=== PATIENT | male | born 1945 | race Caucasian/White ===

== ENCOUNTER 2021-04-22 08:30 | Outpatient (CLI) | payer MEDICARE, OTHER ==
[2021-04-22] MEDS ORDERED: AMIT100T61 PO (10:16)
[2021-04-22 11:12] LABS: ALBUMIN 3.8 G/DL (3.4-5.0); ALBUMIN/GLOBULIN RATIO 1.3 (1.1-1.5); ALKALINE PHOSPHATASE 123 IU/L (46-116); BLOOD UREA NITROGEN 21 MG/DL (7-18); CALCIUM 8.4 MG/DL (8.5-10.1); CHLORIDE 106 MMOL/L (99-107); CREATININE 1.05 MG/DL (0.60-1.10); PRE OP ALT 19 U/L (30-65); PRE OP ANION GAP 7 (8-16); PRE OP AST 14 U/L (10-37); PRE OP BILIRUB, TOTAL 0.3 MG/DL (0.0-1.0); PRE OP GLUCOSE 85 MG/DL (70-104); PRE OP POTASSIUM 4.2 MMOL/L (3.4-5.1); PRE OP SODIUM 145 MMOL/L (135-145); TOTAL CARBON DIOXIDE 31.8 MMOL/L (24-32); TOTAL PROTEIN 6.8 G/DL (6.4-8.2); eGFR 69 ML/MIN
[2021-04-22 11:17] LABS: BASOPHILS % (AUTO) 0.6 % (0-1); EOSINOPHILS # (AUTO) 0.2 X10'3 (0-0.9); EOSINOPHILS % (AUTO) 4.2 % (0-6); LYMPHOCYTES # (AUTO) 1.6 X10'3 (1.1-4.8); LYMPHOCYTES % (AUTO) 28.2 % (21-51); MEAN CORPUSCULAR HEMOGLOBIN 32.2 PG (27.0-31.0); MEAN CORPUSCULAR HGB CONC 33.3 g/dL (33.0-36.5); MEAN CORPUSCULAR VOLUME 96.8 FL (78-98); MONOCYTES # (AUTO) 0.7 X10'3 (0-0.9); MONOCYTES % (AUTO) 12.7 % (2-12); NEUTROPHILS # (AUTO) 3.1 X10'3 (1.8-7.7); NEUTROPHILS % (AUTO) 54.3 % (42-75); PRE OP HEMATOCRIT 40.8 % (42.0-52.0); PRE OP HEMOGLOBIN 13.6 g/dL (14.0-17.9); PRE OP PLATELET COUNT 184 X10'3 (140-440); RED BLOOD COUNT 4.22 X10'6 (4.70-6.10); RED CELL DISTRIBUTION WIDTH 15.8 % (11.5-14.5)
== END 2021-04-22 23:59 | disposition home or self-care (01) ==
LOC: PRE-OP 08:30 → EDSTATUS 05-23 14:30
PROVIDERS: ATTEND Orthopaedic Surgery
DX: Z01.812 Encounter for preprocedural laboratory examination (principal); Z20.822 Contact with and (suspected) exposure to COVID-19
CPT/HCPCS: 36415; 80053; 85025; 87081; U0003; U0005

== ENCOUNTER 2021-05-23 08:59 | Inpatient (IN) | payer MEDICARE, OTHER ==
[2021-05-16 10:24] LABS: BASOPHILS # (AUTO) 0.1 X10'3 (0-0.2); BASOPHILS % (AUTO) 0.7 % (0-1); EOSINOPHILS # (AUTO) 0.2 X10'3 (0-0.9); EOSINOPHILS % (AUTO) 3.3 % (0-6); LYMPHOCYTES # (AUTO) 1.5 X10'3 (1.1-4.8); LYMPHOCYTES % (AUTO) 19.3 % (21-51); MEAN CORPUSCULAR HGB CONC 33.1 g/dL (33.0-36.5); MEAN CORPUSCULAR VOLUME 96.7 FL (78-98); MEAN PLATELET VOLUME 7.9 FL (7.4-10.4); MONOCYTES # (AUTO) 0.7 X10'3 (0-0.9); NEUTROPHILS # (AUTO) 5.2 X10'3 (1.8-7.7); NEUTROPHILS % (AUTO) 67.7 % (42-75); PRE OP HEMOGLOBIN 14.9 g/dL (14.0-17.9); PRE OP PLATELET COUNT 156 X10'3 (140-440); RED BLOOD COUNT 4.65 X10'6 (4.70-6.10); RED CELL DISTRIBUTION WIDTH 15.3 % (11.5-14.5)
[2021-05-16 10:35] LABS: ALBUMIN 4.3 G/DL (3.4-5.0); ALBUMIN/GLOBULIN RATIO 1.3 (1.1-1.5); ALKALINE PHOSPHATASE 120 IU/L (46-116); CALCIUM 8.8 MG/DL (8.5-10.1); CHLORIDE 107 MMOL/L (99-107); CREATININE 1.01 MG/DL (0.60-1.10); PRE OP ALT 25 U/L (30-65); PRE OP ANION GAP 11 (8-16); PRE OP AST 16 U/L (10-37); PRE OP BILIRUB, TOTAL 0.3 MG/DL (0.0-1.0); PRE OP GLUCOSE 99 MG/DL (70-104); PRE OP POTASSIUM 3.8 MMOL/L (3.4-5.1); PRE OP SODIUM 146 MMOL/L (135-145); TOTAL CARBON DIOXIDE 28.5 MMOL/L (24-32); TOTAL PROTEIN 7.5 G/DL (6.4-8.2); eGFR 72 ML/MIN
[2021-05-16 10:56] LABS: BLOOD UREA NITROGEN 13 MG/DL (7-18); BUN/CREATININE RATIO 12.9 (5.4-32.0)
[~2021-05-23] VITALS: Ht 180.3 cm; Wt 76.8 kg
[2021-05-23] VITALS (20 sets, daily range): BP systolic 112–147; BP diastolic 52–80
[~2021-05-23 08:59] MED LIST: NO HOME MEDS; cefazolin/dext.iso 2gm/100ml IV ONE; cefazolin/dext.iso 2gm/50ml 50 ML IV ONE; famotidine 20mg tablet PO ONE; ringers solution, lacted 1,000 ML IV SCH; tranexamic acid 650mg tablet PO ONE; vancomycin 1,500 MG in NS 300ml IV soln IV ONE
[2021-05-23] MEDS ORDERED: tranexamic acid inj. 770 MG in normal saline 100ml IV soln 100 ML IV ONE ×2 (10:35→11:30)
--- NOTE | 2021-05-23 10:50 | NUR ---
PT AWAKE VSS ATTEMPTED TO SWALLOW PILLS, DIFF SWALLOWING, DR RODGERS NOTIFIED ALL MEDS TO BE GIVEN IV. INSTR PT TO FOLLOW UP WITH PCP REGARDING SWALLOWING ISSUES, PT VERBAL UNDERSTANDING. Addendum: 05/23/21 at 1118 by Charissa Hogan RN Amended: Links added.
[2021-05-23] MEDS ORDERED: ketorolac trometh. 30mg/ml inj. ONE (14:17)
[2021-05-23] MEDS ORDERED: ROPIVAcaine 0.5% (5mg/ml) 30ml vial ONE ×3 (14:17→14:44)
[2021-05-23] MEDS ORDERED: sevoflurane 250ml liquid IH ONE (14:22)
[2021-05-23] MEDS ORDERED: fentaNYL/PF 50MCG/1 ML 2ML syringe ONE ×2 (14:24→15:52)
[2021-05-23] MEDS ORDERED: midazolam 1 mg/ML 2ml injection ONE (14:25)
[2021-05-23] MEDS ORDERED: ondansetron/PF 4mg/2ml inj ONE (14:43)
[2021-05-23] MEDS ORDERED: propofol inj 20 ML IV ONE (14:44)
[2021-05-23] MEDS ORDERED: dexamethasone sod phosphate 4mg/ml inj. ONE (14:44)
[2021-05-23] MEDS ORDERED: mineral oil 10ml sterile, topical TP ONE (15:08)
[2021-05-23] MEDS ORDERED: ondansetron/PF 4mg/2ml inj IV PRN ×2 (15:25→16:40)
[2021-05-23] MEDS ORDERED: morphine 2 MG/ML inj. syringe IV PRN (15:25)
[2021-05-23] MEDS ORDERED: morphine 4 MG/ML inj SYRINge IV PRN (15:25)
[2021-05-23] MEDS ORDERED: ringers solution, lacted 1,000 ML IV SCH (15:25)
[2021-05-23] MEDS ORDERED: fentaNYL/PF 50MCG/1 ML 2ML syringe IV PRN ×2 (15:25)
[2021-05-23] MEDS ORDERED: hydrALAZINE 20mg/ml inj. IV PRN (15:25)
[2021-05-23] MEDS ORDERED: labetalol 20mg/4ml (5mg/ml) syringe IV PRN (15:25)
[2021-05-23] MEDS ORDERED: magnesium hydroxide 30ml (MOM) UD suspension PO PRN (16:40)
[2021-05-23] MEDS ORDERED: acetaminophen 325mg tablet PO PRN (16:40)
[2021-05-23] MEDS ORDERED: oxyCODONE IR 5mg (immed. release) tablet PO PRN ×2 (16:40)
[2021-05-23] MEDS ORDERED: HYDROmorphone 1 mg/ml syringe IV PRN (16:40)
[2021-05-23] MEDS ORDERED: HYDROmorphone inj. 0.5 MG/0.5 ML DISP.SYRIN IV PRN (16:40)
[2021-05-23] MEDS: potassium cl 20mEq in 1/2 NS 1,000 ML IV SCH (16:40)
[2021-05-23] MEDS ORDERED: bisacodyl 10mg suppository rectal RC PRN (16:40)
[2021-05-23] MEDS ORDERED: diphenhydrAMINE 25mg capsule PO PRN ×2 (16:40)
--- NOTE | 2021-05-23 17:42 | NUR ---
Report called to receiving nurse. Transferred via BED WITH A 4WW AND A BAG OF LABELED Belongings. Special Issues communicated to receiving nurse ONEIDA BUCHANAN.RN PRESENT TO ACCEPT CARE OF PATIENT AND ASSESS PATIENT. VSS. DENIES PAIN. THANKED ME FOR HELPING AND CARE TURNED OVER. REPORT GIVEN EARLIER. Addendum: 05/23/21 at 1759 by Vicente Helton RN RN Amended: Links added.
--- NOTE | 2021-05-23 18:02 | NUR ---
Pt brought to floor from ortho with RN via hospital bed. Pt alert and oriented x 4. Vital signs within normal limits. Bp-140/80, R-18, temp-97.6, HR-78, 02-97% RA. Pt diagnosis is right total knee arthroplasty. Pt reports pain of 2. Skin intact with only surgery site wrapped. SCDs in place. 20 gauge to left hand with 150mL of Lactated Ringers infusing at this time. Mechanical Soft Diet. Pt currently lying in bed. Will continue to monitor.
--- NOTE | 2021-05-23 18:30 | NUR ---
Patient in room [facility]. I have received report from FILIPE BUCHANAN and had the opportunity to ask questions and assume patient care.
[2021-05-23] MEDS ORDERED: vancomycin/NS 1 GM ADD-VANTAGE 250 ML IV SCH (20:00)
[2021-05-23] MEDS: acetaminophen 325mg tablet PO SCH (20:59)
[2021-05-23] MEDS: gabapentin 300mg capsule PO SCH (20:59)
[2021-05-23] MEDS ORDERED: sennosides 8.6mg tablet PO SCH (21:00)
[2021-05-24] VITALS: BP 144/81
[2021-05-24] MEDS: ceFAZolin/D5W- 1GM premix 50 ML IV SCH ×2 (01:15→08:46)
[2021-05-24] MEDS: potassium cl 20mEq in 1/2 NS 1,000 ML IV SCH (01:16)
[2021-05-24] MEDS: acetaminophen 325mg tablet PO SCH ×2 (02:00→08:47)
[2021-05-24 06:24] LABS: BASOPHILS % (AUTO) 0.1 % (0-1); EOSINOPHILS % (AUTO) 0 % (0-6); HEMATOCRIT 33.4 % (42.0-52.0); HEMOGLOBIN 11.4 g/dl (14.0-17.9); LYMPHOCYTES % (AUTO) 7.6 % (21-51); MEAN CORPUSCULAR HEMOGLOBIN 32.7 PG (27.0-31.0); MEAN PLATELET VOLUME 7.4 FL (7.4-10.4); MONOCYTES # (AUTO) 1.1 X10'3 (0-0.9); MONOCYTES % (AUTO) 8.4 % (2-12); NEUTROPHILS # (AUTO) 10.7 X10'3 (1.8-7.7); NEUTROPHILS % (AUTO) 83.9 % (42-75); PLATELET COUNT 135 X10'3 (140-440); RED BLOOD COUNT 3.47 X10'6 (4.70-6.10); RED CELL DISTRIBUTION WIDTH 15.2 % (11.5-14.5); WHITE BLOOD COUNT 12.7 X10'3 (4.5-11.0)
--- NOTE | 2021-05-24 06:30 | NUR ---
Problems reprioritized. Patient report given, questions answered & plan of care reviewed with CHAD BUCHANAN.
[2021-05-24 06:39] LABS: ANION GAP 11 (8-16); CHLORIDE 108 MMOL/L (99-107); POTASSIUM 4.7 MMOL/L (3.5-5.1); SODIUM 142 MMOL/L (135-145); TOTAL CARBON DIOXIDE 23.1 MMOL/L (24-32)
[2021-05-24 07:00] VITALS: BP 146/74
--- NOTE | 2021-05-24 07:21 | NUR ---
Patient in room [facility]. I have received report from DEWAYNE Rinaldi and had the opportunity to ask questions and assume patient care.
[2021-05-24] MEDS ORDERED: aspirin 325mg tablet PO SCH (08:30)
[2021-05-24] MEDS: gabapentin 300mg capsule PO SCH (08:47)
[2021-05-24 11:00] VITALS: BP 147/64
[2021-05-25] MEDS ORDERED: acetaminophen 325mg tablet PO PRN (16:40)
== END 2021-05-24 12:03 | disposition home or self-care (01) | DRG 470 ==
LOC: PAS IN 08:59 → UNDOADMIN 08:59 → PAS IN 16:41 → SUR 3N 17:44 → PAS IN 17:44
PROVIDERS: ADMIT Orthopaedic Surgery; ATTEND Orthopaedic Surgery
PROC: 3E0T3BZ Introduction of Anesthetic Agent into Peripheral Nerves and Plexi, Percutaneous Approach (ICD-10-PCS; 2021-05-23)
PROC: 3E0T33Z Introduction of Anti-inflammatory into Peripheral Nerves and Plexi, Percutaneous Approach (ICD-10-PCS; 2021-05-23)
PROC: 0SRC0JZ Replacement of Right Knee Joint with Synthetic Substitute, Open Approach (ICD-10-PCS; principal; 2021-05-23 14:22)
DX: M17.0 Bilateral primary osteoarthritis of knee (principal); K21.9 Gastro-esophageal reflux disease without esophagitis
CPT/HCPCS: 36415; 80051; 80053; 82948; 85025; 87081; 97110; 97161; 97530; A4215; A7000; C1713; C1776; G0378; J0690; J1100; J1885; J2250; J2405; J2704; J2795; J3010; J3370; J3480; J7040; J7120; U0003; U0005

== ENCOUNTER 2021-05-25 14:09 | Emergency (ER) | payer OTHER, MEDICARE ==
[~2021-05-25] VITALS: Ht 185.4 cm; Wt 90.0 kg
[~2021-05-25 14:09] MED LIST changes: -cefazolin/dext.iso 2gm/100ml IV ONE; -cefazolin/dext.iso 2gm/50ml 50 ML IV ONE; -famotidine 20mg tablet PO ONE; -ringers solution, lacted 1,000 ML IV SCH; -tranexamic acid 650mg tablet PO ONE; -vancomycin 1,500 MG in NS 300ml IV soln IV ONE
[2021-05-25] MEDS ORDERED: ondansetron/PF 4mg/2ml inj IV ONE (15:30)
[2021-05-25] MEDS ORDERED: HYDROmorphone inj. 0.5 MG/0.5 ML DISP.SYRIN IV ONE (15:30)
[2021-05-25 15:31] LABS: BASOPHILS # (AUTO) 0.1 X10'3 (0-0.2); BASOPHILS % (AUTO) 0.5 % (0-1); EOSINOPHILS # (AUTO) 0.5 X10'3 (0-0.9); EOSINOPHILS % (AUTO) 4.1 % (0-6); HEMATOCRIT 30.4 % (42.0-52.0); HEMOGLOBIN 10.4 g/dl (14.0-17.9); LYMPHOCYTES # (AUTO) 1.9 X10'3 (1.1-4.8); LYMPHOCYTES % (AUTO) 14.9 % (21-51); MEAN CORPUSCULAR HEMOGLOBIN 32.6 PG (27.0-31.0); MEAN CORPUSCULAR HGB CONC 34.2 g/dL (33.0-36.5); MEAN CORPUSCULAR VOLUME 95.4 FL (78-98); MEAN PLATELET VOLUME 7.3 FL (7.4-10.4); MONOCYTES # (AUTO) 1.2 X10'3 (0-0.9); MONOCYTES % (AUTO) 9.2 % (2-12); NEUTROPHILS # (AUTO) 9.2 X10'3 (1.8-7.7); NEUTROPHILS % (AUTO) 71.3 % (42-75); PLATELET COUNT 146 X10'3 (140-440); RED BLOOD COUNT 3.18 X10'6 (4.70-6.10); RED CELL DISTRIBUTION WIDTH 15.8 % (11.5-14.5); WHITE BLOOD COUNT 12.9 X10'3 (4.5-11.0)
[2021-05-25 15:47] LABS: ALANINE AMINOTRANSFERASE 13 U/L (12-78); ALBUMIN 4.1 G/DL (3.4-5.0); ALBUMIN/GLOBULIN RATIO 1.6 (1.1-1.5); ALKALINE PHOSPHATASE 102 IU/L (46-116); ANION GAP 9 (8-16); ASPARTATE AMINO TRANSFERASE 23 U/L (10-37); BILIRUBIN,TOTAL 0.2 MG/DL (0.1-1.0); BLOOD UREA NITROGEN 22 MG/DL (7-18); BUN/CREATININE RATIO 21.6 (5.4-32.0); CALCIUM 8.9 MG/DL (8.5-10.1); CHLORIDE 109 MMOL/L (99-107); CREATININE 1.02 MG/DL (0.60-1.10); GLUCOSE 89 MG/DL (70-104); POTASSIUM 4.5 MMOL/L (3.5-5.1); SODIUM 144 MMOL/L (135-145); TOTAL CARBON DIOXIDE 25.6 MMOL/L (24-32); TOTAL PROTEIN 6.6 G/DL (6.4-8.2); eGFR 71 ML/MIN
[2021-05-25 17:00] VITALS: BP 140/65
== END 2021-05-25 17:02 | disposition home or self-care (01) ==
LOC: ER 14:10
DX: S80.01XA Contusion of right knee, initial encounter (principal); G89.18 Other acute postprocedural pain; D64.9 Anemia, unspecified; R22.41 Localized swelling, mass and lump, right lower limb; Z96.651 Presence of right artificial knee joint; X58.XXXA Exposure to other specified factors, initial encounter; Y93.89 Activity, other specified; Y92.89 Other specified places as the place of occurrence of the external cause; Y99.8 Other external cause status
CPT/HCPCS: 36415; 80053; 85025; 85610; 96374; 96375; 99284; J1170; J2405

== ENCOUNTER 2021-06-05 15:39 | Emergency (ER) | payer OTHER, MEDICARE ==
[~2021-06-05] VITALS: Ht 180.3 cm; Wt 78.6 kg
[2021-06-05 16:58] LABS: ANION GAP 11 (8-16); BLOOD UREA NITROGEN 18 MG/DL (7-18); CALCIUM 9.3 MG/DL (8.5-10.1); CHLORIDE 107 MMOL/L (99-107); CREATININE 1.06 MG/DL (0.60-1.10); GLUCOSE 96 MG/DL (70-104); POTASSIUM 4.6 MMOL/L (3.5-5.1); SODIUM 146 MMOL/L (135-145); TOTAL CARBON DIOXIDE 27.6 MMOL/L (24-32); eGFR 68 ML/MIN
[2021-06-05 17:11] LABS: BASOPHILS % (AUTO) 0.3 % (0-1); EOSINOPHILS # (AUTO) 0.2 X10'3 (0-0.9); EOSINOPHILS % (AUTO) 2.6 % (0-6); HEMATOCRIT 33.5 % (42.0-52.0); HEMOGLOBIN 11.3 g/dl (14.0-17.9); LYMPHOCYTES # (AUTO) 1.1 X10'3 (1.1-4.8); LYMPHOCYTES % (AUTO) 12.9 % (21-51); MEAN CORPUSCULAR HGB CONC 33.8 g/dL (33.0-36.5); MEAN CORPUSCULAR VOLUME 97.8 FL (78-98); MONOCYTES # (AUTO) 0.7 X10'3 (0-0.9); MONOCYTES % (AUTO) 7.9 % (2-12); NEUTROPHILS # (AUTO) 6.3 X10'3 (1.8-7.7); NEUTROPHILS % (AUTO) 76.3 % (42-75); PLATELET COUNT 230 X10'3 (140-440); RED BLOOD COUNT 3.43 X10'6 (4.70-6.10); WHITE BLOOD COUNT 8.3 X10'3 (4.5-11.0)
[2021-06-05 18:04] LABS: D-DIMER 2.79 MG/L FEU (0-0.50)
[2021-06-05] MEDS ORDERED: HYDROcodone/acetaminophen 5mg/325mg tablet PO ONE (19:30)
[2021-06-05 20:07] LABS: C-REACTIVE PROTEIN 0.15 MG/DL (0.0-0.5)
[2021-06-05] MEDS ORDERED: CEPH-585 PO (20:49)
[2021-06-05] MEDS ORDERED: oxyCODONE/APAP 5-325mg tablet PO ONE (20:50)
[2021-06-05] MEDS ORDERED: APIX5TAB3 PO (21:14)
[2021-06-05 21:19] VITALS: BP 144/86
== END 2021-06-05 21:21 | disposition home or self-care (01) ==
LOC: ER 15:40
DX: L03.115 Cellulitis of right lower limb (principal); I82.491 Acute embolism and thrombosis of other specified deep vein of right lower extremity; M79.661 Pain in right lower leg; Z79.2 Long term (current) use of antibiotics; Z79.899 Other long term (current) drug therapy
CPT/HCPCS: 36415; 73560; 80048; 83605; 85025; 85379; 86140; 93971; 99285